=== PATIENT | female | born 1970 | race Caucasian/White ===

== ENCOUNTER 2023-09-12 19:08 | Emergency (ER) | payer OTHER ==
[~2023-09-12] VITALS: Ht 162.6 cm; Wt 83.9 kg
[~2023-09-12 19:08] MED LIST: HALO.05TC TOP; OXYACE5T PO; RXOXYACE PO
[2023-09-12 19:58] LABS: BASOPHILS ABSOLUTE AUTO 0.07 K/mm3 (0.00-0.23); BASOPHILS PERCENT AUTO 1 % (0-2); EOSINOPHILS ABSOLUTE AUTO 0.72 K/mm3 (0.00-0.68); EOSINOPHILS PERCENT AUTO 7 % (0-6); Hematocrit 39.4 % (33.0-51.0); Hemoglobin 12.6 g/dL (11.5-16.0); IMMATURE GRAN ABSOLUTE AUTO 0.02 K/mm3 (0.00-0.10); IMMATURE GRAN PERCENT AUTO 0 % (0-1); LYMPHOCYTES ABSOLUTE AUTO 2.78 K/mm3 (0.84-5.20); LYMPHOCYTES PERCENT AUTO 28 % (21-46); MONOCYTES ABSOLUTE AUTO 1.01 K/mm3 (0.16-1.47); MONOCYTES PERCENT AUTO 10 % (4-13); Mean Corpuscular HGB 27.7 pg (26.0-34.0); Mean Corpuscular Volume 87 fL (80-100); Mean Platelet Volume 9.3 fL (9.1-12.4); NEUTROPHILS ABSOLUTE AUTO 5.34 K/mm3 (1.96-9.15); NEUTROPHILS PERCENT AUTO 54 % (41-73); Platelet Count 336 K/mm3 (150-400); RDW Coefficient Variation 13.7 % (11.7-14.2); RDW Standard Deviation 43.5 fL (35.1-46.3); Red Blood Cell Count 4.55 M/mm3 (3.80-5.20); White Blood Cell Count 9.94 K/mm3 (4.00-11.30)
[2023-09-12 20:11] LABS: Albumin, Blood 3.4 g/dL (3.4-5.0); Bilirubin, Total 0.1 mg/dL (0.1-1.0); Bun/Creatinine Ratio 25.7 (12.0-20.0); Calcium, Blood 8.9 mg/dL (8.5-10.1); Creatinine, Blood 0.58 mg/dL (0.40-1.00); Globulin, Blood 3.4 g/dL (2.2-4.0); Potassium, Blood 3.8 mmol/L (3.5-5.5); Total Protein, Blood 6.8 g/dL (6.4-8.2)
[2023-09-12] MEDS ORDERED: Clindamycin HCl 150 MG Cap PO ONE (21:05)
[2023-09-12] MEDS ORDERED: Cleocin HCl150 MG PO (21:35)
== END 2023-09-12 21:40 | disposition home or self-care (01) ==
LOC: ER 19:08
PROVIDERS: Student in an Organized Health Care Education/Training Program
DX: H04.302 Unspecified dacryocystitis of left lacrimal passage (principal)
CPT/HCPCS: 36415; 80053; 85025; 99284; A9270

== ENCOUNTER 2024-09-27 11:07 | Day surgery (SDC) | payer OTHER ==
[2024-09-27] VITALS (10 sets, daily range): BP systolic 93–141; BP diastolic 57–97
[~2024-09-27] VITALS: Ht 162.6 cm; Wt 84.6 kg
[~2024-09-27 11:07] MED LIST changes: +CeFAZolin Sodium 2,000 MG in NS 100 ML IV SCH; +Chlorhexidine Mouth Care 15 ML UDC MT SCH; +Cleocin HCl150 MG PO; +LOSA50 PO; +Ropivacaine 0.5% HCl/Pf 123.125 MG,EPINEPHrine HCL 0.25 MG,Ketorolac Tromethamine 15 MG... INFIL SCH; +Tranexamic Acid 100 ML IV SCH
[2024-09-27] MEDS ORDERED: HYDROmorphone HCl/Pf 1MG SYR IV PRN ×3 (11:30→11:45)
[2024-09-27] MEDS ORDERED: Prochlorperazine Edisylate 10 mg Vial IV PRN (11:30)
[2024-09-27] MEDS ORDERED: Ondansetron HCl 2 MG / ML 2ML Vial IV PRN ×2 (11:30→11:45)
[2024-09-27] MEDS ORDERED: Metoclopramide HCl 5MG / ML 2ML Vial IV PRN (11:30)
[2024-09-27] MEDS ORDERED: Magnesium Hydroxide Conc 10 ML UDC PO PRN (11:35)
[2024-09-27] MEDS ORDERED: FentaNYL Citrate 50 MCG/ML 2 ML Injection IV PRN ×2 (11:40→11:45)
[2024-09-27] MEDS ORDERED: Midazolam HCl 1MG / ML 2ML Vial IV ONE (11:45)
[2024-09-27] MEDS ORDERED: ePHEDrine Sulfate 50 MG/ML 1ML Injection IV PRN (11:45)
[2024-09-27] MEDS ORDERED: Albuterol 2.5 MG/3 ML VIAL INH PRN (11:45)
--- NOTE | 2024-09-27 12:03 | NUR ---
Ambulatory in Day Surgery. History, Chart, Medications and Allergies reviewed before start of procedure. Patient confirms NPO status and agrees with scheduled surgery. Patient States Post-Procedure ride home has been arranged. PATIENT TEARFUL AND ANXIOUS ABUT SURGERY, AT BEDSIDE.
[2024-09-27] MEDS ORDERED: Phenylephrine HCl 100 MCG/ML-NS 10MLSYR (1MG/10ML) ONE ×2 (12:57→14:01)
[2024-09-27] MEDS ORDERED: Ondansetron HCl 2 MG / ML 2ML Vial ONE (12:57)
[2024-09-27] MEDS ORDERED: Dexamethasone Sod Phos 10 MG/ML 1ML VIAL ONE (12:57)
[2024-09-27] MEDS ORDERED: Phenylephrine HCl 10mg/ml 1 ml Vial ONE (12:57)
[2024-09-27] MEDS ORDERED: Ketorolac Tromethamine 30mg Vial ONE (12:58)
[2024-09-27] MEDS ORDERED: DOCU100 PO (13:33)
[2024-09-27] MEDS ORDERED: ASPI81CH PO (13:33)
[2024-09-27] MEDS ORDERED: ACET500 PO (13:33)
[2024-09-27] MEDS ORDERED: OXYC5 PO (13:34)
[2024-09-27] MEDS ORDERED: Ketorolac Tromethamine 15mg Vial IV SCH (18:00)
--- NOTE | 2024-09-27 18:15 | NUR ---
DISCHARGE: PT DC TO HOME AT THIS TIME WITH SPOUSE. PT HAS MET ALL DC CRITERIE. EATING, VOIDING, TOLERATING DIET. PT PAIN AT 0. PT MIN ASSIST OOB WITH WALKER. DRESSING CDI. SENSATION WNL. PT VERBALIZED UNDERSTANDING OF INSTRUCTIONS, FOLLOW UP, AND MEDICATIONS. DRESSINGS AND EXTRA ROME HOSE GIVEN. PAIN MEDS PREFILLED. IV DC'D WNL. PT LEFT VIA WHEELCHAIR TO CAR WITH BELONGINGS.
[2024-09-27] MEDS ORDERED: CeFAZolin Sodium 2,000 MG in NS 100 ML IV SCH (20:00)
== END 2024-09-27 18:37 | disposition home or self-care (01) ==
LOC: ORSCMMR 11:07 → SURS 11:07 → ORSCMMR 12:00 → ORD 12:00 → SURS 15:19 → ORSCMMR 18:37
PROVIDERS: Orthopaedic Surgery
PROC: 0SR90JA Replacement of Right Hip Joint with Synthetic Substitute, Uncemented, Open Approach (ICD-10-PCS; principal; 2024-09-27 12:00)
DX: M16.11 Unilateral primary osteoarthritis, right hip (principal); I10 Essential (primary) hypertension; Z79.899 Other long term (current) drug therapy; Z87.891 Personal history of nicotine dependence
CPT/HCPCS: 72170; A9270; C1776; J0165; J0690; J0735; J1100; J1885; J2250; J2371; J2405; J2704; J2795; J3373; J7050; J7120